=== PATIENT | female | born 1955 | race Caucasian/White ===

== ENCOUNTER → 2017-01-15 | Outpatient (CLI) | payer BC ==
[~2017-01-15] MED LIST: ALBUTEROL 0.5ML INH; ENBREL50 MG/M1 SQ; FOSAMAX70 MG PO; HUMIBID-LA600 MG PO; MUCOMYST4 ML 20% IH; PREDNISONE PO; PREDNISONE5 M1 PO; SINGULAIR4 MG/PACKE PO; SYMBICORT INH; TREXALL10 MG PO; VIBRAMYCIN100 M1 PO
--- NOTE | ~2017-01-15 | MY11 ---
[facility] A Service of [facility] RADIOLOGY TEXT RESULTS PATIENT: DON CAICEDO LOCATION: [facility] : 57 UNIT #: [id number] AGE: [address]: BRIELLE HOLLINGSWORTH SEX: F ORDER DR: [id number] [facility] [address] [place], [place] [address] [id number] O MR#: [id number] Acc #: [id number] NAME: DON CAICEDO : 1955 SEX: F STUDY DATE/TIME: 01/15/2017 12:05 UNIT: [facility] ROOM: STUDY DESCRIPTION: MY Mammogram Screening Dig [place] Attending Physician: Brielle Hollingsworth M.D. Referring Physician: Brielle Hollingsworth M.D. Ordering Physician: Physician Non-Staff Primary Care Physician: Brielle Hollingsworth M.D. MEDICAL IMAGING REPORT This report is preliminary unless electronic signature is present EXAM Digital screening mammogram, 01/15/2017, [facility]. HISTORY 61-year-old woman positive family history, sister age 54. Annual screen. COMPARISON Mammograms date 07/11/2011 with most recent 06/03/2015. FINDINGS Digital imaging of each breast was completed utilizing a two-view examination of each breast in craniocaudal and mediolateral-oblique projections. Review and interpretation of digital mammograms include a second review in conjunction with FDA-approved CAD device. There is a normal parenchymal presentation bilaterally consistent with the patient's age. There are no breast masses imaged and no parenchymal asymmetry is visualized. There are no suspicious microcalcifications and I see no focal architectural disturbance. IMPRESSION Negative screening digital mammogram. One-year followup recommended. Patients over the age of 40 are entered into a reminder system with target due date for the next mammogram. A result letter will also be sent to the patient. BIRADS: 1 Negative Dictated by... Jeffrey Miles M.D. [facility] A Service [facility] RADIOLOGY TEXT RESULTS PATIENT: DON CAICEDO LOCATION: [facility] : 57 UNIT #: [id number] AGE: [address]: BRIELLE HOLLINGSWORTH SEX: F ORDER DR: THIS IS AN ELECTRONICALLY VERIFIED REPORT Jeffrey Miles M.D. at 01/15/2017 2:59 PM [place] TD: 01/15/2017 14:04 JOB #: [id number] MEDICAL IMAGING REPORT Page 1 of 1 COPY
== END | disposition home or self-care (01) ==
LOC: CWCC 11:36
DX: Z12.31 Encounter for screening mammogram for malignant neoplasm of breast (principal); Z80.3 Family history of malignant neoplasm of breast
CPT/HCPCS: G0202